=== PATIENT | female | born 1970 | race Caucasian/White ===

== ENCOUNTER 2018-05-19 16:02 | Emergency (ER) | payer BC ==
[2018-05-19 16:23] LABS: ABSOLUTE BASOPHILS # (AUTO) 0.1 10^3/uL (0.0-0.2); ABSOLUTE EOSINOPHILS # (AUTO) 0.2 10^3/uL (0.0-0.6); ABSOLUTE LYMPHOCYTES (AUTO) 3.7 10^3/uL (0.5-4.7); ABSOLUTE MONOCYTES (AUTO) 0.8 10^3/uL (0.1-1.4); ABSOLUTE NEUT (AUTO) 7.3 10^3/uL (1.7-8.2); BASOPHILS % (AUTO) 0.6 % (0-2); EOSINOPHILS % (AUTO) 1.8 % (0-6); HEMATOCRIT 38.8 % (36.0-47.0); HEMOGLOBIN 12.8 g/dL (12.0-15.5); LYMPHOCYTES % (AUTO) 30.3 % (13-45); MEAN CORPUSCULAR HEMOGLOBIN 27.1 pg (27.0-33.4); MEAN CORPUSCULAR VOLUME 82 fl (80-97); MONOCYTES % (AUTO) 6.7 % (3-13); PLATELET COUNT 330 10^3/uL (150-450); RED BLOOD COUNT 4.72 10^6/uL (3.72-5.28); RED CELL DISTRIBUTION WIDTH 14.9 % (11.5-14.0); SEGMENTED NEUTROPHILS % (AUTO) 60.6 % (42-78); TOTAL CELLS COUNTED % (AUTO) 100 %
--- NOTE | 2018-05-19 16:27 | ER Document Report ---
ED General - General Mode of Arrival: Ambulatory Information source: Patient TRAVEL OUTSIDE OF THE [place] IN LAST 30 DAYS: No - HPI Onset: This afternoon <MORENA MARTÍNEZ - Last Filed: 05/19/18 17:29> <JONATHAN POOLE - Last Filed: 05/19/18 18:09> - General Chief Complaint: Chest Pain Stated Complaint: CHEST PAIN Time Seen by Provider: 05/19/18 16:12 Notes: Patient is a 47 year old female with hypertension, diabetes type 2, Rheumatoid arthritis, fibromyalgia presents to the emergency department complaining of chest pain onset around 1215 today. 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 She states the pain radiates into the left side of her upper back and describes it as sharp. She states she never experienced a pain like this before. She reports chewing up a coated aspirin before presenting to [facility]. [facility] ran an EKG and sent the patient to this ED via EMS. At bedside patient states the pain has subsided some and describes it as dull. She states the pain is exacerbated with deep breathing. 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 (MORENA MARTÍNEZ) - Related Data Allergies/Adverse Reactions: acetaminophen [From Percocet] Allergy (Verified 05/19/18 16:27) VOMITING morphine [Morphine] Allergy (Verified 05/19/18 16:27) VOMITING oxycodone HCl [From Percocet] Allergy (Verified 05/19/18 16:27) VOMITING propoxyphene napsylate [From Darvocet-N 100] Allergy (Verified 05/19/18 16:27) Hallucinations sertraline HCl [From Zoloft] Allergy (Verified 05/19/18 16:27) tremors Past Medical History - General Information source: Patient - Social History Smoking Status: Never Smoker Frequency of alcohol use: None Drug Abuse: None Family History: CAD, DM, Other - Mother had 1st NC at 43, continued to have 9 more and at 55. Father had 1st and only NC at 68. Patient has suicidal ideation: No Patient has homicidal ideation: No - Past Medical History Cardiac Medical History: Reports: Hx Hypertension Pulmonary Medical History: Reports: Hx Bronchitis - February , Hx COPD - Not a smoker, on medications for COPD which she does not take regularly. Neurological Medical History: Reports: Hx Migraine Endocrine Medical History: Reports: Hx Diabetes Mellitus Type 2 GI Medical History: Reports: Hx Gastroesophageal Reflux Disease Musculoskeltal Medical History: Reports Hx Arthritis - RA, Reports Hx Fibromyalgia Past Surgical History: Reports: Hx Abdominal Surgery - gastric bypass, Hx Hysterectomy, Hx Orthopedic Surgery - left foot, Hx Thyroid Surgery, Hx Tubal Ligation - Immunizations Hx Diphtheria, Pertussis, Tetanus Vaccination: Yes <MORENA MARTÍNEZ - Last Filed: 05/19/18 17:29> Review of Systems - Review of Systems Constitutional: No symptoms reported EENT: No symptoms reported Cardiovascular: See HPI, Chest pain Respiratory: No symptoms reported Gastrointestinal: No symptoms reported Genitourinary: No symptoms reported Female Genitourinary: No symptoms reported Musculoskeletal: No symptoms reported Skin: No symptoms reported Hematologic/Lymphatic: No symptoms reported Neurological/Psychological: No symptoms reported -: Yes All other systems reviewed and negative <MORENA MARTÍNEZ - Last Filed: 05/19/18 17:29> Physical Exam - General General appearance: Appears well, Alert In distress: None - HEENT Head: Normocephalic, Atraumatic Eyes: Normal Conjunctiva: Normal Extraocular movements intact: Yes Pupils: PERRL Neck: Normal - Respiratory Respiratory status: No respiratory distress Chest status: Tender - Cardiovascular Rhythm: Regular Heart sounds: Normal auscultation Murmur: No Friction rub: No Gallop: None auscultated - Back Back: Normal, Tender - To the left medial scapula muscle - Extremities General upper extremity: Normal ROM General lower extremity: Normal ROM - Neurological Neuro grossly intact: Yes Cognition: Normal Orientation: AAOx4 [place] Coma Scale Eye Opening: Spontaneous [place] Coma Scale Verbal: Oriented [place] Coma Scale Motor: Obeys Commands [place] Coma Scale Total: 15 Speech: Normal - Psychological Associated symptoms: Normal affect, Normal mood - Skin Skin Temperature: Warm Skin Moisture: Dry Skin Color: Normal <MORENA MARTÍNEZ - Last Filed: 05/19/18 17:29> - Vital signs Vitals: Pulse Ox 95 05/19/18 16:05 Course - Laboratory Result Diagrams: 05/19/18 16:10 05/19/18 16:10 <MORENA MARTÍNEZ Last Filed: 06/30/18 17:29> - Laboratory Result Diagrams: 05/19/18 16:10 05/19/18 16:10 - Diagnostic Test Radiology reviewed: Image reviewed - Chest x-ray is unremarkable - EKG Interpretation by Me EKG shows normal: Sinus rhythm, [place], Intervals, QRS Complexes, ST-T Waves Rate: Normal - 66 Rhythm: NSR When compared to previous EKG there are: No significant change - Unchanged from 4 years ago <JONATHAN POOLE - Last Filed: 05/19/18 18:09> - Vital Signs Vital signs: Temp Pulse Resp BP Pulse Ox 97.9 F 16 116/71 96 05/19/18 16:14 05/19/18 17:01 05/19/18 17:01 05/19/18 17:01 - Laboratory Laboratory results interpreted by me: 05/19/18 16:10 WBC 12.0 H RDW 14.9 H Discharge <MORENA MARTÍNEZ - Last Filed: 05/19/18 17:29> <JONATHAN POOLE - Last Filed: 05/19/18 18:09> - Discharge Clinical Impression: Chest wall pain Muscle strain of scapular region Qualifiers: Encounter type: initial encounter Laterality: left Qualified Code(s): S46.912A - Strain of unspecified muscle, fascia and tendon at shoulder and upper arm level, left arm, initial encounter Condition: Stable Disposition: HOME, SELF-CARE Additional Instructions: Chest Wall Pain: Your chest pain has been diagnosed as coming from the chest wall. This is often caused by straining the muscles or joints in the chest during physical activity, direct trauma, coughing, or vigorous vomiting. Persons with arthritis are especially prone to this type of pain, due to inflammation of the cartilage joints near the breast bone. Occasionally, no cause can be found. Rest from strenuous physical activity. This kind of chest pain is usually made worse by movement of the chest. Depending on the symptoms, we may prescribe medicine for pain, muscle relaxation, and antiinflammatory effects. If the pain is new, and seems to be due to muscle strain, cold packs can help. Otherwise, apply gentle warmth to the painful area for 15 minutes every hour or two. You should contact the doctor immediately if things change. Further evaluation is needed if you develop a fever or cough, if the nature of the pain changes, or if you become short of breath. Rest. Avoid heavy lifting and straining. Moist heat to the painful muscles. Continue your regular medications. Follow-up with your doctor if not improving. RETURN TO THE EMERGENCY ROOM IF ANY NEW OR WORSENING SYMPTOMS. Referrals: DEANNA COHEN PA-C [Primary Care Provider] - Follow up as needed Scribe Attestation: 05/19/18 18:09 I personally performed the services described in the documentation, reviewed and edited the documentation which was dictated to the scribe in my presence, and it accurately records my words and actions. (JONATHAN POOLE) Scribe Documentation - Scribe Written by Iram:: Iram Edwards, 05/19/2018 16:54 acting as scribe for :: Clarita <MORENA MARTÍNEZ - Last Filed: 05/19/18 17:29>
[2018-05-19 16:41] LABS: ALANINE AMINOTRANSFERASE 24 U/L (9-52); ALBUMIN 3.8 g/dL (3.5-5.0); ALKALINE PHOSPHATASE 107 U/L (38-126); ANION GAP 13 (5-19); ASPARTATE AMINO TRANSFERASE 23 U/L (14-36); BILIRUBIN,DIRECT 0.3 mg/dL (0.0-0.4); BILIRUBIN,TOTAL 0.3 mg/dL (0.2-1.3); BLOOD UREA NITROGEN 17 mg/dL (7-20); CALCIUM 9.1 mg/dL (8.4-10.2); CARBON DIOXIDE 29 mmol/L (22-30); CHLORIDE 101 mmol/L (98-107); CREATINE KINASE 53 U/L (30-135); GLUCOSE 101 mg/dL (75-110); POTASSIUM 3.7 mmol/L (3.6-5.0); SODIUM 143.3 mmol/L (137-145); TOTAL PROTEIN 7.3 g/dL (6.3-8.2)
[2018-05-19] MEDS ORDERED: KETOROLAC TROMETHAMINE INJ/PF 30 MG/1 ML SDV IV ONE (17:02)
[2018-05-19 17:20] LABS: TROPONIN I < 0.012 ng/mL
--- NOTE | 2018-05-19 17:23 | RADIOLOGY REPORT (SQ) ---
EXAM DESCRIPTION: CHEST SINGLE VIEW COMPLETED DATE/TIME: 05/19/2018 5:05 pm REASON FOR STUDY: cp COMPARISON: None. EXAM PARAMETERS: NUMBER OF VIEWS: One view. TECHNIQUE: Single frontal radiographic view of the chest acquired. RADIATION DOSE: NA LIMITATIONS: None. FINDINGS: LUNGS AND PLEURA: No consolidation, pneumothorax or pleural effusion. MEDIASTINUM AND HILAR STRUCTURES: No masses. Contour normal. HEART AND VASCULAR STRUCTURES: Heart normal in size. Normal vasculature. BONES: No acute findings. HARDWARE: None in the chest. IMPRESSION: NO ACUTE RADIOGRAPHIC FINDING IN THE CHEST. TECHNICAL DOCUMENTATION: JOB ID: [id number] 2010 [employer]- All Rights Reserved Reading location - IP/workstation name: [email or web address]
[2018-05-19 18:45] VITALS: BP 117/75
--- NOTE | 2018-05-19 23:00 | EKG REPORT ---
SEVERITY:- ABNORMAL ECG - SINUS RHYTHM PROBABLE INFERIOR INFARCT, AGE INDETERMINATE CONSIDER ANTERIOR INFARCT : Confirmed by: Chanell Murillo MD 19-May-2018 22:59:27
== END 2018-05-19 18:45 | disposition home or self-care (01) ==
LOC: ER 16:02
DX: R07.89 Other chest pain (principal); S46.912A Strain of unspecified muscle, fascia and tendon at shoulder and upper arm level, left arm, initial encounter; X58.XXXA Exposure to other specified factors, initial encounter; I10 Essential (primary) hypertension; E11.9 Type 2 diabetes mellitus without complications; J44.9 Chronic obstructive pulmonary disease, unspecified; Z88.5 Allergy status to narcotic agent; Z82.49 Family history of ischemic heart disease and other diseases of the circulatory system; Z98.84 Bariatric surgery status
CPT/HCPCS: 93005; 99285; 96374; 36415; 82553; 82550; 85025; 80053; 84484; 71045; 93010; J1885

== ENCOUNTER → 2018-07-12 | Outpatient (CLI) | payer BC | LOC: LAB 15:29 | PROVIDERS: ATTEND Physician Assistant | DX: E11.65 Type 2 diabetes mellitus with hyperglycemia (principal); E87.6 Hypokalemia | CPT/HCPCS: 36415; 83036; 84132 ==